=== PATIENT | female | born 1965 | race Caucasian/White ===

== ENCOUNTER 2017-05-13 15:06 | Emergency (ER) | payer OTHER ==
[~2017-05-13] VITALS: Ht 162.6 cm; Wt 53.6 kg
[~2017-05-13 15:06] MED LIST: AMLODIPINE BESYL5 MG PO; ATIVAN1 M1 PO; CELEXA40 MG PO; CEPHALEXIN500 MG PO; DIFLUCAN PO; Ecotrin PO; FENTANYL1 EAC4 TD; HYDROCHLOROTH12.5 MG PO; IMITREX; IMITREX50 MG PO; KLONOPIN0.5 M1 PO; LAMICTAL100 MG PO; LITHIUM CARBON150 MG PO; LOTENSIN5 MG PO; LaMICtal PO; MACROBID100 MG PO; MILLIPRED5 MG PO; OXYCODONE HCL10 MG PO; OXYCODONE-APAP1 EACH PO; OXYCONTIN10 MG PO; PERCOCET 5-3251 EACH PO; PERCOCET 5/31 TABLET PO; PROVENTIL HFA6.7 GM IH; PROVENTIL17 GM IH; RISPERDAL4 MG PO; SERTRALINE HCL50 MG PO; TORADOL10 MG PO; TRAZODONE HCL100 MG PO; TRIAMCINOLONE A15 GM TP; VOLTAREN75 MG PO; ZIPSOR25 MG PO; ZOFRAN ODT4 MG PO; ZOFRAN ODT8 MG PO; ZOLOFT50 M1 PO; [UNRECOGNIZED DRUG - OTHER]
[2017-05-13] MEDS ORDERED: AUGMENTIN875 MG PO (17:19)
[2017-05-13 18:35] VITALS: BP 141/85
== END 2017-05-13 18:36 | disposition home or self-care (01) ==
LOC: EME 15:06
DX: G43.909 Migraine, unspecified, not intractable, without status migrainosus (principal); J32.9 Chronic sinusitis, unspecified; K02.9 Dental caries, unspecified; J45.909 Unspecified asthma, uncomplicated; F32.9 Major depressive disorder, single episode, unspecified; I10 Essential (primary) hypertension; R56.9 Unspecified convulsions; Z88.8 Allergy status to other drugs, medicaments and biological substances
CPT/HCPCS: 99281; 99285; J0780; J1200; J1885; J7030

== ENCOUNTER 2017-06-14 08:46 | Emergency (ER) | payer OTHER ==
[~2017-06-14] VITALS: Ht 152.4 cm; Wt 51.2 kg
[~2017-06-14 08:46] MED LIST changes: +AUGMENTIN875 MG PO
[2017-06-14 09:50] LABS: BASOPHIL COUNT 0.1 K/uL (0-0.1); EOSINOPHIL (%) 1.5 % (0-5); EOSINOPHIL COUNT 0.1 K/uL (0-0.3); HEMATOCRIT 34.7 % (36.0-46.0); IMMATURE GRANULOCYTE (%) 0.2 % (0.0-0.7); INSTRUMENT ABS NEUTROPHIL CT 3.7 K/uL; LYMPHOCYTE COUNT 1.1 K/uL (1.0-2.8); MCHC 33.7 G/DL (30.0-36.0); MCV 94.8 FL (83-99); MEAN PLAT.VOLUME 9.8 uM^3 (9.5-12.4); MONOCYTE (%) 7.7 % (3-12); MONOCYTE COUNT 0.4 K/uL (0-0.8); NEUTROPHIL COUNT 3.7 K/uL (1.8-6.4); PLATELET COUNT 280 K/uL (156-360); RBC DIS.WIDTH-CV 12.1 % (11.8-14.6); RBC DIS.WIDTH-SD 42.5 % (39-53); RED BLOOD COUNT 3.66 M/uL (3.80-5.20); WHITE BLOOD COUNT 5.3 K/uL (4.1-10.2)
[2017-06-14 10:00] LABS: CHLORIDE 102 mEq/L (99-109); POTASSIUM 3.8 mEq/L (3.7-5.4); SODIUM 136 mEq/L (136-147)
[2017-06-14 10:02] LABS: GLUCOSE 94 mg/dL (70-99)
[2017-06-14 10:03] LABS: ANION GAP 10 MEQ/L (2-14)
[2017-06-14 10:06] LABS: GFR ESTIMATE (CALCULATED) > 59 mL/min/
[2017-06-14 10:07] LABS: UREA NITROGEN (BUN) 11 mg/dL (9-23)
[2017-06-14 10:14] LABS: TROP-I INTERPRETATION NEGATIVE; TROPONIN-I < 0.01 ng/mL (0.0-0.30)
[2017-06-14 12:04] LABS: ADD MIUA? YES; BILIRUBIN NEGATIVE; BLOOD MODERATE; COLOR STRAW ((YELLOW)); GLUCOSE (STRIP) NEGATIVE; KETONES NEGATIVE; LEUKOCYTES LARGE; NITRITE NEGATIVE; PROTEIN (STRIP) NEGATIVE; SPECIFIC GRAVITY 1.005 (1.000-1.030); UROBILINOGEN 0.2 MG/DL (0.2-1.0)
[2017-06-14 12:25] LABS: ADD MEDTOX COMMENT Y; AMPHETAMINE NEGATIVE (500 ng/mL); BARBITURATES NEGATIVE (200 ng/mL); BENZODIAZEPINES NEGATIVE (150 ng/mL); COCAINE NEGATIVE (150 ng/mL); INTERNAL CONTROLS VALID? YES; METHADONE NEGATIVE (200 ng/mL); METHAMPHETAMINE NEGATIVE (500 ng/mL); OPIATES (MORPHINE) NEGATIVE (100 ng/mL); OXYCODONE PRESUMPTIVE POSITIVE (100 ng/mL); PHENCYCLIDINE NEGATIVE (25 ng/mL); PROPOXYPHENE NEGATIVE (300 ng/mL); THC CANNABINOIDS PRESUMPTIVE POSITIVE (50 ng/mL); TRICYCLIC ANTIDEPRESSANTS NEGATIVE (300 ng/mL)
[2017-06-14 12:48] LABS: TROP-I INTERPRETATION NEGATIVE; TROPONIN-I < 0.01 ng/mL (0.0-0.30)
[2017-06-14 12:59] LABS: BACTERIA 1+ /HPF; EPITHELIAL CELLS 1+ /HPF; MUCUS NONE SEEN /LPF; RED BLOOD CELLS 15-20 /HPF (0-5); WHITE BLOOD CELLS 30-40 /HPF (0-5)
[2017-06-14 13:47] VITALS: BP 127/78
== END 2017-06-14 13:50 | disposition home or self-care (01) ==
LOC: EME 08:46
PROVIDERS: Emergency Medicine
DX: R07.89 Other chest pain (principal); R05 Cough; R11.10 Vomiting, unspecified; Z91.14 Patient's other noncompliance with medication regimen; I10 Essential (primary) hypertension; J45.909 Unspecified asthma, uncomplicated; Z87.891 Personal history of nicotine dependence
CPT/HCPCS: 71010; 80048; 81003; 84484; 84999; 85025; 93005; 99281; 99285; J1100; J2405; J3010; J7030

== ENCOUNTER 2017-12-22 06:34 | Emergency (ER) | payer OTHER ==
[~2017-12-22] VITALS: Ht 152.4 cm; Wt 53.0 kg
[2017-12-22 07:05] LABS: HEMOGLOBIN 13.6 G/DL (11.9-15.5); MCH 33.3 PG (29.0-34.0); MCHC 34.9 G/DL (30.0-36.0); MCV 95.4 FL (83-99); PLATELET COUNT 347 K/uL (156-360); RBC DIS.WIDTH-CV 11.7 % (11.8-14.6); RBC DIS.WIDTH-SD 40.6 % (39-53); RED BLOOD COUNT 4.09 M/uL (3.80-5.20); WHITE BLOOD COUNT 8.1 K/uL (4.1-10.2)
[2017-12-22 07:33] LABS: QUANTITATIVE HCG < 4.0 MIU/ML
[2017-12-22 07:43] LABS: APPEARANCE CLOUDY ((CLEAR)); BILIRUBIN NEGATIVE; BLOOD NEGATIVE; COLOR YELLOW ((YELLOW)); GLUCOSE (STRIP) NEGATIVE; KETONES NEGATIVE; LEUKOCYTES LARGE; NITRITE NEGATIVE; PROTEIN (STRIP) NEGATIVE; SPECIFIC GRAVITY 1.014 (1.000-1.030); UROBILINOGEN 0.2 MG/DL (0.2-1.0)
[2017-12-22 08:07] LABS: CHLORIDE 103 MEQ/L (99-109); POTASSIUM 3.9 MEQ/L (3.7-5.4); SODIUM 141 MEQ/L (136-147); TOTAL BILIRUBIN 0.6 MG/DL (0.0-1.0)
[2017-12-22 08:12] LABS: ALKALINE PHOSPHATASE 81 IU/L (3-129); ALT (GPT) 18 IU/L (3-49); AST (GOT) 27 IU/L (2-34); CREATININE 0.7 MG/DL (0.6-1.3); GFR ESTIMATE (CALCULATED) > 59 mL/min/; GLUCOSE 108 mg/dL (70-99); TOTAL PROTEIN 7.6 G/DL (6.4-8.3); UREA NITROGEN (BUN) 13 mg/dL (9-23)
[2017-12-22 08:20] LABS: BACTERIA 2+ /HPF; EPITHELIAL CELLS 2+ /HPF; MUCUS NONE SEEN /LPF; RED BLOOD CELLS 0-5 /HPF (0-5); UCUL ADDED? YES; WHITE BLOOD CELLS 40-50 /HPF (0-5)
[2017-12-22] MEDS ORDERED: CIPRO500 MG PO (09:55)
[2017-12-22 10:13] VITALS: BP 153/100
== END 2017-12-22 10:13 | disposition home or self-care (01) ==
LOC: EME 06:34
DX: G43.909 Migraine, unspecified, not intractable, without status migrainosus (principal); N39.0 Urinary tract infection, site not specified; J45.909 Unspecified asthma, uncomplicated; I10 Essential (primary) hypertension; E78.5 Hyperlipidemia, unspecified; R56.9 Unspecified convulsions; G89.29 Other chronic pain; M54.9 Dorsalgia, unspecified; F32.9 Major depressive disorder, single episode, unspecified; Z87.891 Personal history of nicotine dependence; Z90.710 Acquired absence of both cervix and uterus; Z88.5 Allergy status to narcotic agent; Z88.8 Allergy status to other drugs, medicaments and biological substances
CPT/HCPCS: 80053; 81003; 84702; 85027; 87086; 99281; 99285; J1885; J2765; J7030